=== PATIENT | male | born 1950 | race Caucasian/White ===

== ENCOUNTER 2018-12-24 02:28 | Emergency (ER) | payer MEDICARE ==
[~2018-12-24] VITALS: Ht 182.9 cm; Wt 111.1 kg
[2018-12-24 02:46] VITALS: BP_SYST 124
[2018-12-24] MEDS ORDERED: DILTIAZEM HCL 25 MG/5 ML VIAL IVP ONE (03:15)
[2018-12-24] MEDS ORDERED: NACL 0.9% 1,000 ML IV ONE (03:15)
[2018-12-24 03:42] LABS: BASOPHILS # (AUTO) 0.1 K/uL (0.0-0.2); BASOPHILS % (AUTO) 0.6 % (0.0-2.0); EOSINOPHILS # (AUTO) 0.4 K/uL (0.0-0.4); HEMOGLOBIN 12.3 g/dL (14.0-18.0); LYMPHOCYTES # (AUTO) 1.9 K/uL (1.0-5.5); LYMPHOCYTES % (AUTO) 15.1 % (20.5-51.5); MEAN CORPUSCULAR HEMOGLOBIN 31 pg (27-31); MEAN CORPUSCULAR HGB CONC 33 % (32-36); MEAN CORPUSCULAR VOLUME 92 fL (79.0-98.0); MONOCYTES # (AUTO) 0.8 K/uL (0.0-1.0); MONOCYTES % (AUTO) 6.1 % (1.7-9.3); NEUTROPHILS # (AUTO) 9.7 K/uL (1.8-7.7); NEUTROPHILS % (AUTO) 75.2 % (40.0-70.0); PLATELET COUNT (AUTO) 340 K/uL (130-430); RED BLOOD CELL COUNT(AUTO) 4.02 MIL/uL (4.2-6.2); RED CELL DISTRIBUTION WIDTH 13.9 % (9.0-15.0); WHITE BLOOD COUNT (AUTO) 12.9 K/uL (4.8-10.8)
[2018-12-24 04:04] LABS: ALBUMIN 3.1 g/dL (3.4-4.8); CALCIUM 9.6 mg/dL (8.4-11.0); CREATININE 1.17 mg/dL (0.55-1.30); TOTAL BILIRUBIN 0.4 mg/dL (0.0-1.0)
[2018-12-24] MEDS ORDERED: MORPHINE 4 MG/ML INJ. SYRINGE IVP ONE ×2 (04:15→08:15)
[2018-12-24] MEDS ORDERED: ONDANSETRON HCL 4 MG/2 ML VIAL IVP ONE (04:30)
[2018-12-24] MEDS ORDERED: ONDANSETRON HCL 4 MG/2 ML VIAL ONE (04:32)
[2018-12-24] MEDS ORDERED: MORPHINE 2 MG/ML INJ. SYRINGE IVP ONE (04:45)
[2018-12-24 07:44] LABS: BILIRUBIN,URINE 1+ (NEGATIVE); BLOOD, URINE NEGATIVE (NEGATIVE); COLOR,URINE YELLOW (YELLOW); GLUCOSE,URINE NEGATIVE (NEGATIVE); KETONES,URINE TRACE (NEGATIVE); LEUKOCYTE ESTERASE ,URINE NEGATIVE (NEGATIVE); NITRITE, URINE NEGATIVE (NEGATIVE); PH,URINE 5.5 (5.0-8.0); PROTEIN URINE 1+ (NEGATIVE); UROBILINOGEN,URINE 0.2 (0.2-1.0)
[2018-12-24 07:48] LABS: CLARITY/URINE SLIGHTLY HAZY (CLEAR)
[2018-12-24 07:53] LABS: BACTERIA,URINE FEW /HPF (None Seen); MUCUS,URINE 1+ /LPF (None Seen); RBC,URINE NONE SEEN /HPF (0-3); WBC,URINE 0-3 /HPF (0-3)
[2018-12-24 08:26] VITALS: BP_SYST 121
== END 2018-12-24 08:26 | disposition short-term general hospital (02) ==
LOC: SED 02:28
DX: K85.90 Acute pancreatitis without necrosis or infection, unspecified (principal)
CPT/HCPCS: 36415; 74176; 80053; 81000; 82150; 82550; 82962; 83605; 83690; 84484; 85025; 87040; 93005; 96374; 96375; 96376; 99285; J2270 ×2; J2405; J3490; J7030

== ENCOUNTER 2022-09-12 12:42 | Emergency (ER) | payer MEDICARE ==
[~2022-09-12] VITALS: Ht 182.9 cm; Wt 109.8 kg
[2022-09-12 12:42] VITALS: BP_SYST 120; PULSE 77; RESP 18; TEMP 96.5; O2SAT 96
[2022-09-12] MEDS ORDERED: ONDANSETRON 4 MG ODT TAB ONE (12:55)
[2022-09-12] MEDS ORDERED: ONDANSETRON 4 MG ODT TAB PO ONE (13:00)
[2022-09-12] MEDS ORDERED: DIPH-TET Vacc 0.5 ML VIAL I.M. ONE (13:00)
[2022-09-12] MEDS ORDERED: HYDROcodone/ACETAMIN 10-325 MG TAB PO ONE (13:00)
[2022-09-12] MEDS ORDERED: LIDOCAINE 1% 10 MG/ML, 20 ML MDV INJ ONE (13:00)
[2022-09-12] MEDS ORDERED: BACITRACIN 1 GM OINT TP ONE (13:34)
[2022-09-12] MEDS ORDERED: CEPH-548 PO (14:05)
[2022-09-12] MEDS ORDERED: cephALEXin 500 MG CAPSULE PO ONE (14:15)
[2022-09-12] MEDS ORDERED: OXYC-128 PO (14:37)
== END 2022-09-12 15:28 | disposition home or self-care (01) ==
LOC: SED 12:42
DX: S61.211A Laceration without foreign body of left index finger without damage to nail, initial encounter (principal); S61.213A Laceration without foreign body of left middle finger without damage to nail, initial encounter; S61.215A Laceration without foreign body of left ring finger without damage to nail, initial encounter; Z79.899 Other long term (current) drug therapy; W27.0XXA Contact with workbench tool, initial encounter; Y93.89 Activity, other specified; Y92.89 Other specified places as the place of occurrence of the external cause; Y99.8 Other external cause status
CPT/HCPCS: 99284; 73130; 90714; 90471; 12002; Q0162

== ENCOUNTER 2023-06-30 12:47 | Inpatient (IN) | payer MEDICARE ==
[~2023-06-30] VITALS: Ht 185.4 cm; Wt 108.9 kg
[~2023-06-30 12:47] MED LIST: CEPH-548 PO; OXYC-128 PO
[2023-06-30 12:57] VITALS: BP_SYST 118; PULSE 118; RESP 18; TEMP 96.2; O2SAT 97
[2023-06-30 13:38] LABS: BASOPHILS # (AUTO) 0.1 K/uL (0.0-0.2); BASOPHILS % (AUTO) 0.6 % (0.0-2.0); EOSINOPHILS # (AUTO) 0.3 K/uL (0.0-0.4); EOSINOPHILS % (AUTO) 1.7 % (0.0-4.0); HEMATOCRIT 36.7 % (36-54); HEMOGLOBIN 12.2 g/dL (14.0-18.0); LYMPHOCYTES # (AUTO) 1.5 K/uL (1.0-5.5); LYMPHOCYTES % (AUTO) 9.1 % (20.5-51.5); MEAN CORPUSCULAR HEMOGLOBIN 31 pg (27-31); MEAN CORPUSCULAR HGB CONC 33 % (32-36); MEAN CORPUSCULAR VOLUME 93 fL (79.0-98.0); MONOCYTES # (AUTO) 0.9 K/uL (0.0-1.0); MONOCYTES % (AUTO) 5.7 % (1.7-9.3); NEUTROPHILS # (AUTO) 13.8 K/uL (1.8-7.7); NEUTROPHILS % (AUTO) 82.9 % (40.0-70.0); PLATELET COUNT (AUTO) 269 K/uL (130-430); RED BLOOD CELL COUNT(AUTO) 3.94 MIL/uL (4.2-6.2); WHITE BLOOD COUNT (AUTO) 16.6 K/uL (4.8-10.8)
[2023-06-30 13:53] LABS: INR 1.2 (0.80-1.20); PROTHROMBIN TIME 12.4 SECS (9.5-12.5)
[2023-06-30 13:57] LABS: ALANINE AMINOTRANSFERASE 4 U/L (12-78); ALBUMIN 3.4 g/dL (3.4-4.8); ANION GAP 13 (5-15); ASPARTATE AMINOTRANSFERASE < 5 U/L (10-37); BILIRUBIN,DIRECT 0.2 mg/dL (0.0-0.3); CALCIUM 9.5 mg/dL (8.4-11.0); CARBON DIOXIDE 25 mmol/L (23-29); CHLORIDE 100 mmol/L (98-107); GLUCOSE 192 mg/dL (74-106); LIPASE 46 U/L (16-77); POTASSIUM 4.9 mmol/L (3.5-5.1); SODIUM SERUM 138 mmol/L (136-145); TOTAL BILIRUBIN 0.5 mg/dL (0.0-1.0); TOTAL PROTEIN, SERUM 8.1 g/dL (6.4-8.3); UREA NITROGEN, BLOOD 26 mg/dL (8-21)
[2023-06-30 14:31] LABS: BILIRUBIN,URINE 1+ (NEGATIVE); BLOOD, URINE NEGATIVE (NEGATIVE); CLARITY/URINE CLEAR (CLEAR); COLOR,URINE YELLOW (YELLOW); GLUCOSE,URINE NEGATIVE (NEGATIVE); KETONES,URINE TRACE (NEGATIVE); LEUKOCYTE ESTERASE ,URINE NEGATIVE (NEGATIVE); NITRITE, URINE NEGATIVE (NEGATIVE); PH,URINE 5.5 (5.0-8.0); PROTEIN URINE 2+ (NEGATIVE); UROBILINOGEN,URINE 0.2 (0.2-1.0)
[2023-06-30 14:45] LABS: BACTERIA,URINE FEW /HPF (None Seen); RBC,URINE 0-3 /HPF (0-3); WBC,URINE 0-3 /HPF (0-3)
[2023-06-30 14:46] LABS: MUCUS,URINE None Seen /LPF (None Seen)
[2023-06-30] MEDS: NACL 0.9% 1,000 ML IV ONE ×2 (14:56→18:33)
[2023-06-30] MEDS: PANTOPRAZOLE SODIUM 40 MG/VIAL (PROTONIX) IVP ONE ×2 (15:38→19:43)
[2023-06-30] MEDS ORDERED: HUM PROTHROMBIN CPLX(PCC)-LANS 500 UNIT VIAL IV ONE (16:42)
[2023-06-30] MEDS: WATER FOR INJECTION STERILE IV ONE (18:30)
[2023-06-30] MEDS: HUM PROTHROMBIN CPLX LANS IV ONE (18:30)
[2023-06-30] MEDS: NACL 0.9% 1,000 ML IV SCH (19:15)
[2023-06-30] MEDS ORDERED: METF-1069 PO (19:32)
[2023-06-30] MEDS ORDERED: ATOR10TA68 PO (19:32)
[2023-06-30] MEDS ORDERED: RIVA20TA PO (19:32)
[2023-06-30] MEDS ORDERED: GLIP10TA11 PO (19:32)
[2023-06-30] MEDS ORDERED: LISI2.5T48 PO (19:32)
[2023-06-30] MEDS ORDERED: DEXTROSE 50% JECT 50 ML DISP.SYRIN IVP PRN (23:00)
[2023-06-30] MEDS ORDERED: OXYCODONE/ACETAMINOPHEN 5-325 TABLET PO PRN (23:00)
[2023-06-30] MEDS ORDERED: PANTOPRAZOLE SODIUM 40 MG/VIAL (PROTONIX) ONE (23:30)
[2023-06-30] MEDS: PANTOPRAZOLE SODIUM 40 MG in NS 50 ML IV SCH (23:37)
[2023-07-01] MEDS ORDERED: PANTOPRAZOLE SODIUM 40 MG/VIAL (PROTONIX) ONE ×2 (04:12→08:28)
[2023-07-01 04:35] LABS: BASOPHILS % (AUTO) 0.4 % (0.0-2.0); EOSINOPHILS # (AUTO) 0.2 K/uL (0.0-0.4); EOSINOPHILS % (AUTO) 1.6 % (0.0-4.0); HEMATOCRIT 32.7 % (36-54); HEMOGLOBIN 10.9 g/dL (14.0-18.0); LYMPHOCYTES # (AUTO) 1.7 K/uL (1.0-5.5); LYMPHOCYTES % (AUTO) 13.9 % (20.5-51.5); MEAN CORPUSCULAR HEMOGLOBIN 31 pg (27-31); MEAN CORPUSCULAR HGB CONC 33 % (32-36); MEAN CORPUSCULAR VOLUME 92 fL (79.0-98.0); MONOCYTES # (AUTO) 0.9 K/uL (0.0-1.0); MONOCYTES % (AUTO) 7.6 % (1.7-9.3); NEUTROPHILS # (AUTO) 9.1 K/uL (1.8-7.7); NEUTROPHILS % (AUTO) 76.5 % (40.0-70.0); PLATELET COUNT (AUTO) 186 K/uL (130-430); RED BLOOD CELL COUNT(AUTO) 3.54 MIL/uL (4.2-6.2); RED CELL DISTRIBUTION WIDTH 13.7 % (9.0-15.0); WHITE BLOOD COUNT (AUTO) 11.9 K/uL (4.8-10.8)
[2023-07-01 04:50] LABS: ALANINE AMINOTRANSFERASE 15 U/L (12-78); ANION GAP 11 (5-15); ASPARTATE AMINOTRANSFERASE 11 U/L (10-37); CALCIUM 8.3 mg/dL (8.4-11.0); CARBON DIOXIDE 25 mmol/L (23-29); CHLORIDE 99 mmol/L (98-107); CREATININE 1.47 mg/dL (0.55-1.30); GLUCOSE 183 mg/dL (74-106); PHOSPHORUS 3.5 mg/dL (2.7-4.5); POTASSIUM 4.5 mmol/L (3.5-5.1); SODIUM SERUM 135 mmol/L (136-145); TOTAL BILIRUBIN 0.5 mg/dL (0.0-1.0); TOTAL PROTEIN, SERUM 7.5 g/dL (6.4-8.3); UREA NITROGEN, BLOOD 35 mg/dL (8-21)
[2023-07-01] MEDS: MORPHINE 4 MG INJ. 4 MG/ML VIAL IVP PRN (07:02)
[2023-07-01] MEDS: ONDANSETRON HCL 4 MG/2 ML VIAL IVP PRN (07:02)
[2023-07-01 07:30] LABS: BASOPHILS % (AUTO) 0.4 % (0.0-2.0); EOSINOPHILS # (AUTO) 0.2 K/uL (0.0-0.4); EOSINOPHILS % (AUTO) 1.8 % (0.0-4.0); HEMATOCRIT 31.3 % (36-54); HEMOGLOBIN 10.4 g/dL (14.0-18.0); LYMPHOCYTES # (AUTO) 1.5 K/uL (1.0-5.5); LYMPHOCYTES % (AUTO) 14.9 % (20.5-51.5); MEAN CORPUSCULAR HEMOGLOBIN 31 pg (27-31); MEAN CORPUSCULAR HGB CONC 33 % (32-36); MEAN CORPUSCULAR VOLUME 92 fL (79.0-98.0); MONOCYTES # (AUTO) 0.7 K/uL (0.0-1.0); MONOCYTES % (AUTO) 7.2 % (1.7-9.3); NEUTROPHILS # (AUTO) 7.5 K/uL (1.8-7.7); NEUTROPHILS % (AUTO) 75.7 % (40.0-70.0); PLATELET COUNT (AUTO) 203 K/uL (130-430); RED BLOOD CELL COUNT(AUTO) 3.39 MIL/uL (4.2-6.2); RED CELL DISTRIBUTION WIDTH 13.4 % (9.0-15.0); WHITE BLOOD COUNT (AUTO) 9.9 K/uL (4.8-10.8)
[2023-07-01] MEDS: PANTOPRAZOLE SODIUM 40 MG/VIAL (PROTONIX) IVP SCH (08:39)
[2023-07-01] MEDS: OCTREOTIDE ACETATE 50 MCG in NS 50 ML IV ONE (08:40)
[2023-07-01] MEDS: OCTREOTIDE ACETATE 1,250 MCG in NS 248.75 ML IV SCH (08:54)
[2023-07-01] MEDS: ATORVASTATIN 10 MG TABLET PO SCH (09:00)
[2023-07-01] MEDS: ERYTHROMYCIN LACTOBIONATE 500 MG in NS 50 ML IV ONE (09:35)
[2023-07-01] MEDS: SIMETHICONE 40 MG/0.6 ML ML ONE (10:09)
[2023-07-01] MEDS: lisinopriL 5 MG TABLET PO SCH (10:24)
[2023-07-01] MEDS: MIDAZOLAM HCL 5 MG/5 ML VIAL ONE (10:52)
[2023-07-01] MEDS: MEPERIDINE 100 MG INJ. 100 MG/ML VIAL ONE (10:52)
[2023-07-01] MEDS: DIPHENHYDRAMINE INJ 50 MG/ML VIAL ONE (10:55)
[2023-07-01] MEDS ORDERED: INSULIN REGULAR, HUMAN 10 UNITS/0.1 ML, 3 ML VIAL ONE (12:36)
[2023-07-01] MEDS: INSULIN REGULAR, HUMAN 100 UNITS/ML, 3 ML VIAL (humuLIN R) SUBCUT PRN (12:37)
[2023-07-01] MEDS ORDERED: MORPHINE 4 MG INJ. 4 MG/ML VIAL ONE (23:21)
[2023-07-02 08:05] LABS: BASOPHILS # (AUTO) 0.1 K/uL (0.0-0.2); BASOPHILS % (AUTO) 0.9 % (0.0-2.0); EOSINOPHILS # (AUTO) 0.3 K/uL (0.0-0.4); EOSINOPHILS % (AUTO) 4.2 % (0.0-4.0); HEMOGLOBIN 9.5 g/dL (14.0-18.0); LYMPHOCYTES # (AUTO) 1.4 K/uL (1.0-5.5); LYMPHOCYTES % (AUTO) 20.4 % (20.5-51.5); MEAN CORPUSCULAR HEMOGLOBIN 31 pg (27-31); MEAN CORPUSCULAR HGB CONC 33 % (32-36); MEAN CORPUSCULAR VOLUME 93 fL (79.0-98.0); MONOCYTES # (AUTO) 0.5 K/uL (0.0-1.0); MONOCYTES % (AUTO) 7.3 % (1.7-9.3); NEUTROPHILS # (AUTO) 4.6 K/uL (1.8-7.7); NEUTROPHILS % (AUTO) 67.2 % (40.0-70.0); PLATELET COUNT (AUTO) 179 K/uL (130-430); RED BLOOD CELL COUNT(AUTO) 3.11 MIL/uL (4.2-6.2); RED CELL DISTRIBUTION WIDTH 13.5 % (9.0-15.0); WHITE BLOOD COUNT (AUTO) 6.9 K/uL (4.8-10.8)
[2023-07-02 10:15] VITALS: BP_SYST 123; PULSE 88; RESP 20; TEMP 97.2; O2SAT 99
== END 2023-07-02 10:17 | disposition left against medical advice (07) | DRG 380 ==
LOC: SED 12:47 → STU 19:06
PROVIDERS: ADMIT Internal Medicine; ATTEND Internal Medicine
PROC: 0DB78ZX Excision of Stomach, Pylorus, Via Natural or Artificial Opening Endoscopic, Diagnostic (ICD-10-PCS; 2023-07-01)
PROC: 0DB68ZX Excision of Stomach, Via Natural or Artificial Opening Endoscopic, Diagnostic (ICD-10-PCS; 2023-07-01)
PROC: 0DH64UZ Insertion of Feeding Device into Stomach, Percutaneous Endoscopic Approach (ICD-10-PCS; principal; 2023-07-01 10:00)
DX: K22.11 Ulcer of esophagus with bleeding (principal); N17.0 Acute kidney failure with tubular necrosis; K76.6 Portal hypertension; I86.4 Gastric varices; K29.70 Gastritis, unspecified, without bleeding; K31.89 Other diseases of stomach and duodenum; I48.0 Paroxysmal atrial fibrillation; I10 Essential (primary) hypertension; E11.9 Type 2 diabetes mellitus without complications; E78.5 Hyperlipidemia, unspecified; K57.30 Diverticulosis of large intestine without perforation or abscess without bleeding; M54.9 Dorsalgia, unspecified; M47.897 Other spondylosis, lumbosacral region; I70.90 Unspecified atherosclerosis; E66.9 Obesity, unspecified; Z68.31 Body mass index [BMI] 31.0-31.9, adult; K74.60 Unspecified cirrhosis of liver; Z87.891 Personal history of nicotine dependence
CPT/HCPCS: 36415; 43239; 80048; 80053; 80076; 81000; 81001; 81015; 82948; 83037; 83690; 84100; 85025; 85610; 85730; 86886; 86900; 86901; 86920; 87081; 88305; 88312; 88313; 93005; 99285; C9113; G0378; J1200; J1364; J1815; J2175; J2250; J2270; J2354; J2405; J7050; Q9967